=== PATIENT | male | born 1980 | race Caucasian/White ===

== ENCOUNTER 2024-05-25 16:07 | Emergency (ER) | payer BC, MEDICAID, SELFPAY ==
[2024-05-25 16:12] VITALS: BP 114/82; PULSE 111; RESP 18; TEMP 36.6; O2SAT 100; BMI 19.9
--- NOTE | 2024-05-25 16:17 | ED_ITS ---
HPI - Abdominal Pain 2 General: Chief Complaint: Abdominal Pain Stated Complaint: abd pain Time Seen by Provider: 05/25/24 16:11 History of Present Illness: 43-year-old male patient comes in today with complaints of abdominal discomfort. Patient has not had a paracentesis done in 2 to 3 weeks and believes his fluid is building up. Patient was brought in by EMS. Patient was given fentanyl and route which some relief of pain. Related Data Allergies Allergy/AdvReac Type Severity Reaction Status Date / Time No Known Allergies Allergy Verified 05/25/24 16:16 Review of Systems 2 General: Reports: 10 or more systems reviewed and unremarkable except in HPI and below Physical Exam 2 Const: COMMON NORMALS: alert HENMT: COMMON NORMALS: normocephalic HEAD & SCALP: normocephalic Neck/C-Spine: COMMON NORMALS: full ROM Chest: COMMONS NORMALS: normal inspection of the chest Resp: COMMON NORMALS: normal respiratory effort Cardio: COMMON NORMALS: regular rate RATE: regular rate GI: COMMON NORMALS: Soft to palpation AUSCULTATION: Yes normoactive bowel sounds PALPATION: Yes Soft to palpation, Yes Tenderness to palpation present (GI) and Yes Hepatomegaly present OTHER: Mild distention Back/Pelvis: COMMON NORMALS: thoracic and lumbar spine normal to inspection Extremity: COMMON NORMALS: full ROM Neuro: SENSORIUM/ORIENTATION: Yes alert Skin: COMMON NORMALS: turgor normal (Jaundice) GENERAL SKIN EXAM: turgor normal (Jaundice) Course 2 Vital Signs: Vital signs: Vital Signs Temperature 97.9 F 05/25/24 16:12 Pulse Rate 93 05/25/24 16:50 Respiratory Rate 16 05/25/24 16:50 Blood Pressure 109/75 05/25/24 16:50 Pulse Oximetry 99 05/25/24 16:50 Oxygen Delivery Me thod Room Air 05/25/24 16:50 MDM - Abdominal Pain Medical Decision Making 43-year-old male patient comes in today for abdominal pain. Patient believes he is needing paracentesis. Patient is seen by a registered veterinary technician at [facility] but has not been able to get back to see them in order to have a repeat paracentesis. Abdomen slightly distended but still soft. Vital signs are normal. Differential diagnosis includes ascites, malingering, end-stage liver disease. Laboratory values noted and normal ammonia. Bilirubin was 3.6, mild anemia with a hemoglobin 9.7, creatinine 0.6. Patient has no significant distention of abdomen warranting paracentesis emergently. Case management was requested to assist with appointment with specialist for follow-up and paracentesis. Reviewed this with patient who reported understanding and agreed with plan. Lab Data 05/25/24 16:45 05/25/24 16:45 Labs/Radiology: Laboratory Results WBC 5.00 10^3/uL (3.29-11.43) 05/25/24 16:45 RBC 3.94 10^6/uL (3.85-5.65) 05/25/24 16:45 Hgb 9.70 g/dL (11.27-16.99) L 05/25/24 16:45 Hct 32.8 % (37-53) L 05/25/24 16:45 MCV 83.2 fl (82-101) 05/25/24 16:45 MCH 24.6 pg (27-33) L 05/25/24 16:45 MCHC 29.6 g/dL (30-55) L 05/25/24 16:45 RDW 21.1 % (12.1-15.1) H 05/25/24 16:45 Plt Count 88 10^3/cmm (157-399) L 05/25/24 16:45 MPV 11.4 fL (7.4-10.4) H 05/25/24 16:45 Neut % (Auto) 64.6 % 05/25/24 16:45 Lymph % (Auto) 22.8 % 05/25/24 16:45 [place] % (Auto) 10.0 % 05/25/24 16:45 Eos % (Auto) 1.4 % 05/25/24 16:45 Baso % (Auto) 0.8 % 05/25/24 16:45 Neut # (Auto) 3.23 10^3/uL (1.8-7.7) 05/25/24 16:45 Lymph # (Auto) 1.1 10^3/uL (0.8-4.8) 05/25/24 16:45 [place] # (Auto) 0.5 10^3/uL (0.2-0.9) 05/25/24 16:45 Eos # (Auto) 0.1 10^3/uL (0.0-0.8) 05/25/24 16:45 Baso # (Auto) 0.0 10^3/uL (0.0-0.1) 05/25/24 16:45 Nucleated RBC % (auto) 0 % 05/25/24 16:45 Nucleated RBCs # 0.0 /100WBC 05/25/24 16:45 Sodium 141 mmol/L (136-145) 05/25/24 16:45 Potassium 3.1 mmol/L (3.5-5.1) L 05/25/24 16:45 Chloride 106 mmol/L (98-107) 05/25/24 16:45 Carbon Dioxide 21 mmol/L (22-29) L 05/25/24 16:45 Anion Gap 17.1 (5-19) 05/25/24 16:45 BUN 8 mg/dL (6-20) 05/25/24 16:45 Creatinine 0.6 mg/dL (0.7-1.2) L 05/25/24 16:45 GFR Calculation 145.7 mL/min (90-130) H 05/25/24 16:45 Glucose 99 mg/dL (65-115) 05/25/24 16:45 Calculated Osmolality 290 mOsm/kg (285-295) 05/25/24 16:45 Calcium 7.6 mg/dL (8.5-10.5) L 05/25/24 16:45 Total Bilirubin 3.6 mg/dL (0.15-1.2) H 05/25/24 16:45 AST 28 U/L (0-40) 05/25/24 16:45 ALT 11 U/L (0-41) 05/25/24 16:45 Alkaline Phosphatase 111 U/L (40-130) 05/25/24 16:45 Ammonia 27 umol/L (16-60) 05/25/24 16:45 Total Protein 6.1 g/dL (6.6-8.7) L 05/25/24 16:45 Albumin 3.3 g/dL (3.5-5.2) L 05/25/24 16:45 Globulin 2.8 g/dL (1.3-4.6) 05/25/24 16:45 No radiology studies performed this visit Discharge Plan Discharge Patient Disposition: Home Clinical Impression: Cirrhosis of liver with ascites Qualifiers: Hepatic cirrhosis type: unspecified hepatic cirrhosis Qualified Code(s): K74.60 - Unspecified cirrhosis of liver Condition: Stable Discharge Orders: Discharge ED (Routine); Ordered 05/25/24 Ordered By: Benito Zaman Discharge Diet: Usual diet Discharge Activity: Increase activity as tolerated Patient Instructions: Cirrhosis of the Liver (ED) Activity Restrictions/Additional Instructions: Continue with routine care. Case management will contact you regarding follow- up appointment with specialist for paracentesis of ascites. Coding Level of Care Code ED Shovel Handle Assembler for Siva Amezcua
[2024-05-25 16:44] VITALS: RESP 16; O2SAT 99
[2024-05-25] MEDS: HYDROmorphone 1 mg/mL INJ 1 mL 0.5 MG IVP (16:44)
[2024-05-25 16:50] VITALS: BP 109/75; PULSE 93; RESP 16; O2SAT 99
[2024-05-25 16:52] LABS: Basophils % 0.8 %; Eosinophils # 0.1 10^3/uL (0.0-0.8); Eosinophils % 1.4 %; Hematocrit 32.8 % (37-53); Lymphocytes # 1.1 10^3/uL (0.8-4.8); Lymphocytes % 22.8 %; Mean Corpuscular HGB Conc 29.6 g/dL (30-55); Mean Corpuscular Hemoglobin 24.6 pg (27-33); Mean Corpuscular Volume 83.2 fl (82-101); Mean Platelet Volume 11.4 fL (7.4-10.4); Monocytes # 0.5 10^3/uL (0.2-0.9); Neutrophils # 3.23 10^3/uL (1.8-7.7); Neutrophils % 64.6 %; Nucleated Red Blood Cells % 0 %; Platelet Count 88 10^3/cmm (157-399); Red Blood Count 3.94 10^6/uL (3.85-5.65); Red Cell Distribution Width 21.1 % (12.1-15.1)
[2024-05-25 17:06] LABS: Alanine Aminotransferase 11 U/L (0-41); Albumin Level 3.3 g/dL (3.5-5.2); Alkaline Phosphatase 111 U/L (40-130); Anion Gap 17.1 (5-19); Aspartate Amino Transferase 28 U/L (0-40); Blood Urea Nitrogen 8 mg/dL (6-20); Calcium 7.6 mg/dL (8.5-10.5); Carbon Dioxide 21 mmol/L (22-29); Chloride 106 mmol/L (98-107); Creatinine Clr Calc Pharmacy 147.1488; Globulin 2.8 g/dL (1.3-4.6); Glomerular Filtration Rate 145.7 mL/min (90-130); Glucose 99 mg/dL (65-115); Osmolality Calculated 290 mOsm/kg (285-295); Potassium 3.1 mmol/L (3.5-5.1); Sodium 141 mmol/L (136-145); Total Bilirubin 3.6 mg/dL (0.15-1.2); Total Protein 6.1 g/dL (6.6-8.7)
[2024-05-25 17:13] LABS: Ammonia 27 umol/L (16-60)
[2024-05-25 17:46] VITALS: BP 130/88
[2024-05-25 18:06] VITALS: BP 130/88; PULSE 99; O2SAT 99
== END 2024-05-25 18:07 | disposition home or self-care (01) ==
PROVIDERS: Emergency Provider Nurse Practitioner Family
DX: K74.60 Unspecified cirrhosis of liver (principal)
CPT/HCPCS: 36415; 80053; 82140; 85025; 96374; 99284; J1170

== ENCOUNTER 2024-05-26 16:59 | Emergency (ER) | payer BC, MEDICAID, SELFPAY ==
[2024-05-26 17:04] VITALS: BP 120/74; PULSE 97; RESP 20; TEMP 36.7; O2SAT 95; BMI 19.9
--- NOTE | 2024-05-26 17:43 | ED_ITS ---
Documented by User: Neptali Beltran DO 05/27/24 06:08 HPI - Abdominal Pain 2 General: Chief Complaint: Abdominal Pain Stated Complaint: abd pain, liver failure Time Seen by Provider: 05/26/24 17:03 History of Present Illness: 43-year-old male presents to the emergen cy room with complaint of abdominal pain. Patient has a history of end-stage liver disease with cirrhosis has severe ascites he gets paracentesis about once a week. Comes in today complaining of significant distention of the abdomen. Complaining of generalized abdominal pain and bloating. No fever. No sweats or chills. Associated Symptoms: Reports bloating and nausea; Denies chills, coffee ground emesis, dysuria, fever(s) and hematemesis Related Data Allergies Allergy/AdvReac Type Severity Reaction Status Date / Time No Known Allergies Allergy Verified 05/25/24 16:16 Review of Systems 2 Const: Denies: fever(s) or chills Card: Denies: chest pain Resp: Denies: dyspnea GI: Reports: abdominal pain, nausea and bloating; Denies: hematemesis or coffee ground emesis : Denies: dysuria, urinary frequency or urinary urgency Musc: Denies: neck pain or back pain Skin/Breast: Denies: rash Physical Exam 2 Const: GENERAL APPEARANCE: cooperative NUTRITIONAL APPEARANCE: cachectic ORIENTATION/CONSCIOUSNESS: Yes awake, Yes oriented to person, Yes oriented to place and Yes oriented to time HENMT: COMMON NORMALS: normocephalic, atraumatic and hearing grossly normal bilaterally HEAD & SCALP: normocephalic and atraumatic Resp: COMMON NORMALS: normal respiratory effort, No retractions, No use of accessory muscles and clear to auscultation bilaterally AUSCULTATION: clear to auscultation bilaterally Cardio: COMMON NORMALS: regular rate, regular rhythm and No murmurs present (Cardio) RATE: regular rate RHYTHM: regular rhythm GI: COMMON NORMALS: No hepatosplenomegaly present INSPECTION: Yes abdominal distension and Yes Fluid wave present PALPATION: Yes Tenderness to palpation present (GI) (Generally), No Guarding due to palpation present (GI) and Yes No hepatosplenomegaly present PERCUSSION: dullness to percussion and Fluid wave present Extremity: COMMON NORMALS: normal to inspection, capillary refill normal, no clubbing, cyanosis or edema, no calf tenderness and no pedal edema Neuro: SENSORIUM/ORIENTATION: Yes oriented to person, Yes oriented to place and Yes oriented to time Skin: COMMON NORMALS: no rashes or lesions noted GENERAL SKIN EXAM: no rashes or lesions noted Course 2 Vital Signs: Vital signs: Vital Signs Temperature 98.0 F 05/26/24 17:04 Pulse Rate 93 05/26/24 20:11 Respiratory Rate 19 H 05/26/24 20:11 Blood Pressure 115/86 05/26/24 20:11 Pulse Oximetry 98 05/26/24 20:11 Oxygen Delivery Me thod Room Air 05/26/24 19:56 MDM - Abdominal Pain Medical Decision Making Care signed out to Dr. Raphael at change of shift. See final notes for diagnosis and disposition. Lab work was reviewed and discussed with the patient. Patient will be discharged and case management will be consulted to call the patient to bring him back hopefully tomorrow for paracentesis by radiology. Lab Data 05/26/24 17:17 05/26/24 17:17 Labs/Radiology: Laboratory Results WBC 5.43 10^3/uL (3.29-11.43) 05/26/24 17:17 RBC 4.06 10^6/uL (3.85-5.65) 05/26/24 17:17 Hgb 10.40 g/dL (11.27-16.99) L 05/26/24 17:17 Hct 33.7 % (37-53) L 05/26/24 17:17 MCV 83.0 fl (82-101) 05/26/24 17:17 MCH 25.6 pg (27-33) L 05/26/24 17:17 MCHC 30.9 g/dL (30-55) 05/26/24 17:17 RDW 22.0 % (12.1-15.1) H 05/26/24 17:17 Plt Count 84 10^3/cmm (157-399) L 05/26/24 17:17 MPV Not Reportable 05/26/24 17:17 Neut % (Auto) 64.5 % 05/26/24 17:17 Lymph % (Auto) 23.9 % 05/26/24 17:17 [place] % (Auto) 8.3 % 05/26/24 17:17 Eos % (Auto) 2.0 % 05/26/24 17:17 Baso % (Auto) 1.1 % 05/26/24 17:17 Neut # (Auto) 3.50 10^3/uL (1.8-7.7) 05/26/24 17:17 Lymph # (Auto) 1.3 10^3/uL (0.8-4.8) 05/26/24 17:17 [place] # (Auto) 0.5 10^3/uL (0.2-0.9) 05/26/24 17:17 Eos # (Auto) 0.1 10^3/uL (0.0-0.8) 05/26/24 17:17 Baso # (Auto) 0.1 10^3/uL (0.0-0.1) 05/26/24 17:17 Nucleated RBC % (auto) 0 % 05/26/24 17:17 Nucleated RBCs # 0.0 /100WBC 05/26/24 17:17 PT 19.60 SECONDS (12.1-14.9) H 05/26/24 17:17 INR 1.60 (0.8-1.2) H 05/26/24 17:17 APTT 38.5 SECONDS (23.9-36.7) H 05/26/24 17:17 Sodium 137 mmol/L (136-145) 05/26/24 17:17 Potassium 3.4 mmol/L (3.5-5.1) L 05/26/24 17:17 Chloride 103 mmol/L (98-107) 05/26/24 17:17 Carbon Dioxide 20 mmol/L (22-29) L 05/26/24 17:17 Anion Gap 17.4 (5-19) 05/26/24 17:17 BUN 10 mg/dL (6-20) 05/26/24 17:17 Creatinine 0.5 mg/dL (0.7-1.2) L 05/26/24 17:17 GFR Calculation 179.8 mL/min (90-130) H 05/26/24 17:17 Glucose 95 mg/dL (65-115) 05/26/24 17:17 Calculated Osmolality 283 mOsm/kg (285-295) L 05/26/24 17:17 Lactic Acid 2.7 mmol/L (0.5-2.2) H 05/26/24 17:17 Calcium 8.3 mg/dL (8.5-10.5) L 05/26/24 17:17 Total Bilirubin 4.9 mg/dL (0.15-1.2) H 05/26/24 17:17 AST 40 U/L (0-40) 05/26/24 17:17 ALT 13 U/L (0-41) 05/26/24 17:17 Alkaline Phosphatase 121 U/L (40-130) 05/26/24 17:17 Ammonia 61 umol/L (16-60) H 05/26/24 17:17 Total Protein 7.1 g/dL (6.6-8.7) 05/26/24 17:17 Albumin 3.6 g/dL (3.5-5.2) 05/26/24 17:17 Globulin 3.5 g/dL (1.3-4.6) 05/26/24 17:17 Lipase 47 U/L (13-60) 05/26/24 17:17 Urine Color [place] (Yellow) A 05/26/24 19:29 Urine Appearance Clear (CLEAR) 05/26/24 19:29 Urine pH 6.0 (5-7) 05/26/24 19:29 Ur Specific [place] 1.031 (1.005-1.030) H 05/26/24 19:29 Urine Protein Trace (Negative) A 05/26/24 19: Urine Glucose (UA) Negative (Normal) 05/26/24 19: Urine Ketones Trace (Negative) 05/26/24 19: Urine Blood Negative (Negative) 05/26/24 19: Urine Nitrate Positive (Negative) A 05/26/24 19:29 Urine Bilirubin 2+ (Negative) H 05/26/24 19:29 Urine Urobilinogen 4.0 mg/dL (Negative) H 05/26/24 19:29 Ur Leukocyte Esterase 1+ (Negative) A 05/26/24 19: Urine RBC 6-10 /hpf (0-2) 05/26/24 19:29 Urine WBC 0-5 /hpf (0-5) 05/26/24 19:29 Ur Squamous Epith Cells 0-5 /hpf (0-5) 05/26/24 19:29 Amorphous Sediment Not Reportable 05/26/24 19:29 Urine Bacteria None seen /hpf (NONE) 05/26/24 19:29 Hyaline Casts 3.71 /lpf 05/26/24 19:29 Discharge Plan Discharge Patient Disposition: Home Clinical Impression: Cirrhosis of liver with ascites Qualifiers: Hepatic cirrhosis type: unspecified hepatic cirrhosis Qualified Code(s): K74.60 - Unspecified cirrhosis of liver Condition: Stable Discharge Orders: Discharge ED (Routine); Ordered 05/26/24 Ordered By: Mike Raphael Patient Instructions: Ascites (ED), Paracentesis (DC) Activity Restrictions/Additional Instructions: A order for therapeutic paracentesis or drawing off fluid of your abdomen placed for case management. They will probably be calling you early tomorrow morning to arrange in a time that you can come in for radiology to do this procedure. If you have any questions feel free to call the hospital. Coding Level of Care Code ED Chip Frier for Chg Fwd Documented by User: Mike Raphael DO 05/26/24 20:53 HPI - Abdominal Pain 2 General: Chief Complaint: Abdominal Pain Stated Complaint: abd pain, liver failure Time Seen by Provider: 05/26/24 17:03 Related Data Allergies Allergy/AdvReac Type Severity Reaction Status Date / Time No Known Allergies Allergy Verified 05/25/24 16:16 Physical Exam 2 Const: COMMON NORMALS: no acute distress, average body habitus, patient oriented x3, no limitations, healthy appearing, alert and well nourished HENMT: COMMON NORMALS: normocephalic, atraumatic, hearing grossly normal bilaterally, external ears normal, Normal external nose present and moist oral mucous membranes HEAD & SCALP: normocephalic and atraumatic NOSE: Normal external nose present EXTERNAL EAR: Yes external ears normal Neck/C-Spine: COMMON NORMALS: no JVD Chest: COMMONS NORMALS: normal inspection of the chest Resp: COMMON NORMALS: normal respiratory effort, No retractions, No use of accessory muscles and clear to auscultation bilaterally AUSCULTATION: clear to auscultation bilaterally Cardio: COMMON NORMALS: no JVD, regular rate, regular rhythm, S1 normal heart sound present, S2 normal heart sound present, No gallops present (Cardio), No clicks present (Cardio), No murmurs present (Cardio) and No rub (Cardio) R ATE: regular rate RHYTHM: regular rhythm HEART SOUNDS: S1 normal heart sound present and S2 normal heart sound present GI: COMMON NORMALS: no masses OTHER: Moderately distended, soft to palpate, diffuse ascites, diffusely tender. Neuro: COMMON NORMALS: patient oriented x3 SENSORIUM/ORIENTATION: Yes alert Course 2 Vital Signs: Vital signs: Vital Signs Temperature 98.0 F 05/26/24 17:04 Pulse Rate 93 05/26/24 20:11 Respiratory Rate 19 H 05/26/24 20:11 Blood Pressure 115/86 05/26/24 20:11 Pulse Oximetry 98 05/26/24 20:11 Oxygen Delivery Me thod Room Air 05/26/24 19:56 MDM - Abdominal Pain Medical Decision Making Lab work was reviewed and discussed with the patient. Patient will be discharged and case management will be consulted to call the patient to bring him back hopefully tomorrow for paracentesis by radiology. Medical Records I reviewed the patient's medical records. Lab Data I reviewed the patient's lab results. 05/26/24 17:17 05/26/24 17:17 Labs/Radiology: Laboratory Results WBC 5.43 10^3/uL (3.29-11.43) 05/26/24 17:17 RBC 4.06 10^6/uL (3.85-5.65) 05/26/24 17:17 Hgb 10.40 g/dL (11.27-16.99) L 05/26/24 17:17 Hct 33.7 % (37-53) L 05/26/24 17:17 MCV 83.0 fl (82-101) 05/26/24 17:17 MCH 25.6 pg (27-33) L 05/26/24 17:17 MCHC 30.9 g/dL (30-55) 05/26/24 17:17 RDW 22.0 % (12.1-15.1) H 05/26/24 17:17 Plt Count 84 10^3/cmm (157-399) L 05/26/24 17:17 MPV Not Reportable 05/26/24 17:17 Neut % (Auto) 64.5 % 05/26/24 17:17 Lymph % (Auto) 23.9 % 05/26/24 17:17 [place] % (Auto) 8.3 % 05/26/24 17:17 Eos % (Auto) 2.0 % 05/26/24 17:17 Baso % (Auto) 1.1 % 05/26/24 17:17 Neut # (Auto) 3.50 10^3/uL (1.8-7.7) 05/26/24 17:17 Lymph # (Auto) 1.3 10^3/uL (0.8-4.8) 05/26/24 17:17 [place] # (Auto) 0.5 10^3/uL (0.2-0.9) 05/26/24 17:17 Eos # (Auto) 0.1 10^3/uL (0.0-0.8) 05/26/24 17:17 Baso # (Auto) 0.1 10^3/uL (0.0-0.1) 05/26/24 17:17 Nucleated RBC % (auto) 0 % 05/26/24 17:17 Nucleated RBCs # 0.0 /100WBC 05/26/24 17:17 PT 19.60 SECONDS (12.1-14.9) H 05/26/24 17:17 INR 1.60 (0.8-1.2) H 05/26/24 17:17 APTT 38.5 SECONDS (23.9-36.7) H 05/26/24 17:17 Sodium 137 mmol/L (136-145) 05/26/24 17:17 Potassium 3.4 mmol/L (3.5-5.1) L 05/26/24 17:17 Chloride 103 mmol/L (98-107) 05/26/24 17:17 Carbon Dioxide 20 mmol/L (22-29) L 05/26/24 17:17 Anion Gap 17.4 (5-19) 05/26/24 17:17 BUN 10 mg/dL (6-20) 05/26/24 17:17 Creatinine 0.5 mg/dL (0.7-1.2) L 05/26/24 17:17 GFR Calculation 179.8 mL/min (90-130) H 05/26/24 17:17 Glucose 95 mg/dL (65-115) 05/26/24 17:17 Calculated Osmolality 283 mOsm/kg (285-295) L 05/26/24 17:17 Lactic Acid 2.7 mmol/L (0.5-2.2) H 05/26/24 17:17 Calcium 8.3 mg/dL (8.5-10.5) L 05/26/24 17:17 Total Bilirubin 4.9 mg/dL (0.15-1.2) H 05/26/24 17:17 AST 40 U/L (0-40) 05/26/24 17:17 ALT 13 U/L (0-41) 05/26/24 17:17 Alkaline Phosphatase 121 U/L (40-130) 05/26/24 17:17 Ammonia 61 umol/L (16-60) H 05/26/24 17:17 Total Protein 7.1 g/dL (6.6-8.7) 05/26/24 17:17 Albumin 3.6 g/dL (3.5-5.2) 05/26/24 17:17 Globulin 3.5 g/dL (1.3-4.6) 05/26/24 17:17 Lipase 47 U/L (13-60) 05/26/24 17:17 Urine Color [place] (Yellow) A 05/26/24 19: Urine Appearance Clear (CLEAR) 05/26/24 19:29 Urine pH 6.0 (5-7) 05/26/24 19:29 Ur Specific [place] 1.031 (1.005-1.030) H 05/26/24 19:29 Urine Protein Trace (Negative) A 05/26/24 19:29 Urine Glucose (UA) Negative (Normal) 05/26/24 19: Urine Ketones Trace (Negative) 05/26/24 19: Urine Blood Negative (Negative) 05/26/24 19: Urine Nitrate Positive (Negative) A 05/26/24 19:29 Urine Bilirubin 2+ (Negative) H 05/26/24 19:29 Urine Urobilinogen 4.0 mg/dL (Negative) H 05/26/24 19:29 Ur Leukocyte Esterase 1+ (Negative) A 05/26/24 19:29 Urine RBC 6-10 /hpf (0-2) 05/26/24 19:29 Urine WBC 0-5 /hpf (0-5) 05/26/24 19:29 Ur Squamous Epith Cells 0-5 /hpf (0-5) 05/26/24 19:29 Amorphous Sediment Not Reportable 05/26/24 19:29 Urine Bacteria None seen /hpf (NONE) 05/26/24 19:29 Hyaline Casts 3.71 /lpf 05/26/24 19:29 All radiology interpretation(s) finalized by discharge Discharge Plan Discharge Patient Disposition: Home Clinical Impression: Cirrhosis of liver with ascites Qualifiers: Hepatic cirrhosis type: unspecified hepatic cirrhosis Qualified Code(s): K74.60 - Unspecified cirrhosis of liver Condition: Stable Discharge Orders: Discharge ED (Routine); Ordered 05/26/24 Ordered By: Mike Raphael Patient Instructions: Ascites (ED), Paracentesis (DC) Activity Restrictions/Additional Instructions: A order for therapeutic paracentesis or drawing off fluid of your abdomen placed for case management. They will probably be calling you early tomorrow morning to arrange in a time that you can come in for radiology to do this procedure. If you have any questions feel free to call the hospital. Coding Level of Care Code ED Chip Frier for Siva Amezcua
[2024-05-26 17:45] LABS: Basophils # 0.1 10^3/uL (0.0-0.1); Basophils % 1.1 %; Eosinophils # 0.1 10^3/uL (0.0-0.8); Hematocrit 33.7 % (37-53); Lymphocytes # 1.3 10^3/uL (0.8-4.8); Lymphocytes % 23.9 %; Mean Corpuscular HGB Conc 30.9 g/dL (30-55); Mean Corpuscular Hemoglobin 25.6 pg (27-33); Monocytes # 0.5 10^3/uL (0.2-0.9); Monocytes % 8.3 %; Neutrophils % 64.5 %; Nucleated Red Blood Cells % 0 %; Platelet Count 84 10^3/cmm (157-399); Red Blood Count 4.06 10^6/uL (3.85-5.65); White Blood Count 5.43 10^3/uL (3.29-11.43)
[2024-05-26 17:56] LABS: Partial Thromboplastin Time 38.5 SECONDS (23.9-36.7)
[2024-05-26 17:58] LABS: Slide Review Slide Review Perform
[2024-05-26 18:01] LABS: Alanine Aminotransferase 13 U/L (0-41); Albumin Level 3.6 g/dL (3.5-5.2); Alkaline Phosphatase 121 U/L (40-130); Blood Urea Nitrogen 10 mg/dL (6-20); Calcium 8.3 mg/dL (8.5-10.5); Carbon Dioxide 20 mmol/L (22-29); Chloride 103 mmol/L (98-107); Creatinine Clr Calc Pharmacy 176.5786; Globulin 3.5 g/dL (1.3-4.6); Glomerular Filtration Rate 179.8 mL/min (90-130); Glucose 95 mg/dL (65-115); Lipase 47 U/L (13-60); Osmolality Calculated 283 mOsm/kg (285-295); Sodium 137 mmol/L (136-145); Total Bilirubin 4.9 mg/dL (0.15-1.2); Total Protein 7.1 g/dL (6.6-8.7)
[2024-05-26 18:02] LABS: Lactic Sepsis W/Reflex 2.7 mmol/L (0.5-2.2)
[2024-05-26 18:04] LABS: Anion Gap 17.4 (5-19); Aspartate Amino Transferase 40 U/L (0-40); Potassium 3.4 mmol/L (3.5-5.1)
[2024-05-26 18:12] LABS: Ammonia 61 umol/L (16-60)
[2024-05-26 18:41] VITALS: BP 111/72; PULSE 101; RESP 20; O2SAT 98
[2024-05-26 19:06] VITALS: BP 109/80; PULSE 94; RESP 16; O2SAT 97
[2024-05-26 19:26] LABS: Reflex Lactate Order REFLEX LACTIC ORDERD
[2024-05-26 19:44] LABS: Bilirubin Urine 2+ (Negative); Blood Urine Negative (Negative); Glucose Urine UA Negative (Normal); Ketones Urine Trace (Negative); Leukocyte Esterase Urine 1+ (Negative); Nitrate Urine Positive (Negative); Protein Urine Trace (Negative); Urine Appearance Clear (CLEAR)
[2024-05-26 19:49] LABS: Add Urine Microscopic? YES; Bacteria Urine None Seen /hpf; Hyaline Casts Urine 3.71 /lpf; Squamous Epithelial Cell Urine 0-5 /hpf (0-5); WBC Urine 0-5 /hpf (0-5)
[2024-05-26] MEDS: HYDROmorphone 1 mg/mL INJ 1 mL 0.5 MG IVP (19:52)
[2024-05-26 19:56] VITALS: BP 106/74; PULSE 92; RESP 19; O2SAT 100
[2024-05-26 20:00] LABS: Specific Gravity, Urine 1.031 (1.005-1.030); Urine Color Orange (Yellow)
[2024-05-26 20:01] LABS: Add Urine Culture? Yes
[2024-05-26 20:11] VITALS: BP 115/86; PULSE 93; RESP 19; O2SAT 98
== END 2024-05-26 20:12 | disposition home or self-care (01) ==
PROVIDERS: Emergency Provider Family Medicine
DX: K74.60 Unspecified cirrhosis of liver (principal); R18.8 Other ascites; K72.10 Chronic hepatic failure without coma
CPT/HCPCS: 36415; 80053; 81001; 82140; 83605; 83690; 85025; 85610; 85730; 87040; 87086; 96374; 99284; J1170

== ENCOUNTER 2024-05-27 11:33 | Day surgery (SDC) | payer BC, SELFPAY ==
[2024-05-27 11:51] VITALS: BP 121/89; PULSE 119; RESP 18; TEMP 36.4; O2SAT 100; BMI 19.9
--- NOTE | 2024-05-27 11:53 | US_ITS ---
WS: [id number] ULTRASOUND-GUIDED PARACENTESIS CLINICAL INFORMATION: ascites COMPARISON: None. Procedure Informed consent: The risks, benefits, and alternatives of the procedure were discussed with the ben ent. Verbal and written consent was obtained. Timeout: A timeout was performed to confirm the correct patient, procedure, and site. Preparation: A suitable skin site was identified. The patient was prepped and draped in usual sterile fashion. Lidocaine 1% was used for local anesthesia. Catheter: 4 [place] One-step Yueh catheter. Side: LEFT lower quadrant. Fluid Volume: 10,000 ml Color: Clear yellow DISPOSITION: Discarded safely. Complications: None. Patient disposition: Discharged from the department in stable condition. US/US paracentesis abd w [id number] IMPRESSION: Uncomplicated ultrasound-guided paracentesis. Removal of 10,000 cc
== END 2024-05-27 13:15 | disposition home or self-care (01) ==
PROVIDERS: Radiology Neuroradiology; Visit Provider Family Medicine
PROC: (CPT 49082; principal; 2024-05-27 12:00)
DX: R18.8 Other ascites (principal)
CPT/HCPCS: 49083

== ENCOUNTER 2024-05-28 23:28 | Emergency (ER) | payer BC, SELFPAY ==
[2024-05-28 23:29] VITALS: BP 126/81; PULSE 113; RESP 16; TEMP 36.9; O2SAT 97; BMI 19.9
[2024-05-28 23:34] VITALS: BP 126/81; PULSE 112; O2SAT 100
--- NOTE | 2024-05-28 23:35 | ED_ITS ---
HPI - Abdominal Pain 2 General: Chief Complaint: Abdominal Pain Stated Complaint: abd pain Time Seen by Provider: 05/28/24 23:34 History of Present Illness: Patient presents to the ER with sharp stabbing abdominal pain. He says his abdomen is less distended since he got his paracentesis yesterday they drained 9-1/2 L fluid out but now feels like his internal organs are hitting each other and causing pain. Paracentesis was performed without any complications per patient. Patient denies any nausea vomiting diarrhea constipation fevers chills. Related Data Home Medications Medication Instructions Recorded Confirmed buprenorphine HCl 300 mcg buccal 300 mcg buccal DAILY 05/27/24 05/27/24 film (Belbuca) hydrocodone 5 mg-acetaminophen 325 1 tab PO .Q4-6 HR PRN Pain 05/27/24 05/27/24 mg tablet ondansetron 4 mg disintegrating 4 mg PO Q4H PRN Nausea 05/27/24 05/27/24 tablet orphenadrine citrate 100 mg 100 mg PO BID 05/27/24 05/27/24 tablet,extended release prochlorperazine maleate 10 mg 10 mg PO Q6H PRN Nausea 05/27/24 05/27/24 tablet Previous Rx's Medication Instructions Recorded ondansetron HCl 4 mg tablet 4 mg PO Q8H PRN nausea and 05/29/24 vomiting #14 tabs Allergies Allergy/AdvReac Type Severity Reaction Status Date / Time No Known Allergies Allergy Verified 05/28/24 23:34 Review of Systems 2 General: Reports: 10 or more systems reviewed and unremarkable except in HPI and below Physical Exam 2 Const: COMMON NORMALS: no acute distress, average body habitus, patient oriented x3, no limitations, healthy appearing, alert and well nourished HENMT: COMMON NORMALS: normocephalic, hearing grossly normal bilaterally, external ears normal, Normal external nose present and moist oral mucous membranes HEAD & SCALP: normocephalic NOSE: Normal external nose present EXTERNAL EAR: Yes external ears normal Neck/C-Spine: COMMON NORMALS: no JVD Chest: COMMONS NORMALS: normal inspection of the chest and normal palpation of entire chest wall Resp: COMMON NORMALS: normal respiratory effort, No retractions, No use of accessory muscles and clear to auscultation bilaterally AUSCULTATION: clear to auscultation bilaterally Cardio: COMMON NORMALS: no JVD, regular rate, regular rhythm, S1 normal heart sound present, S2 normal heart sound present, No gallops present (Cardio), No clicks present (Cardio), No murmurs present (Cardio) and No rub (Cardio) R ATE: regular rate RHYTHM: regular rhythm HEART SOUNDS: S1 normal heart sound present and S2 normal heart sound present GI: COMMON NORMALS: Normal to inspection, nondistended, normoactive bowel sounds present, Soft to palpation, No hepatosplenomegaly present and no masses; negative for non-tender (Diffusely pj to palpation) PALPATION: Yes Soft to palpation and Yes No hepatosplenomegaly present Neuro: COMMON NORMALS: patient oriented x3 SENSORIUM/ORIENTATION: Yes alert Course 2 Vital Signs: Vital signs: Vital Signs Temperature 98.4 F 05/28/24 23:29 Pulse Rate 104 H 05/29/24 00:30 Respiratory Rate 13 05/29/24 00:04 Blood Pressure 117/78 05/29/24 00:30 Pulse Oximetry 98 05/29/24 00:04 Oxygen Delivery Me thod Room Air 05/29/24 00:04 MDM - Abdominal Pain Medical Decision Making Lab work was obtained which is unremarkable for the patient to be is more anemic with a hemoglobin of 8.4, x-ray preliminary read by myself was negative for acute changes, patient was given 0.5 mg of Dilaudid Reglan 10 mg. Upon recheck patient was sleeping soundly. Patient be discharged. Medical Records I reviewed the patient's medical records. Lab Data I reviewed the patient's lab results. 05/28/24 23:54 05/28/24 23:54 Labs/Radiology: Laboratory Results WBC 4.41 10^3/uL (3.29-11.43) 05/28/24 23:54 RBC 3.35 10^6/uL (3.85-5.65) L 05/28/24 23:54 Hgb 8.40 g/dL (11.27-16.99) L 05/28/24 23:54 Hct 28.6 % (37-53) L 05/28/24 23:54 MCV 85.4 fl (82-101) 05/28/24 23:54 MCH 25.1 pg (27-33) L 05/28/24 23:54 MCHC 29.4 g/dL (30-55) L 05/28/24 23:54 RDW 21.9 % (12.1-15.1) H 05/28/24 23:54 Plt Count 78 10^3/cmm (157-399) L 05/28/24 23:54 MPV 11.9 fL (7.4-10.4) H 05/28/24 23:54 Neut % (Auto) 67.4 % 05/28/24 23:54 Lymph % (Auto) 22.2 % 05/28/24 23:54 [place] % (Auto) 7.5 % 05/28/24 23:54 Eos % (Auto) 2.0 % 05/28/24 23:54 Baso % (Auto) 0.7 % 05/28/24 23:54 Neut # (Auto) 2.97 10^3/uL (1.8-7.7) 05/28/24 23:54 Lymph # (Auto) 1.0 10^3/uL (0.8-4.8) 05/28/24 23:54 [place] # (Auto) 0.3 10^3/uL (0.2-0.9) 05/28/24 23:54 Eos # (Auto) 0.1 10^3/uL (0.0-0.8) 05/28/24 23:54 Baso # (Auto) 0.0 10^3/uL (0.0-0.1) 05/28/24 23:54 Nucleated RBC % (auto) 0 % 05/28/24 23:54 Nucleated RBCs # 0.0 /100WBC 05/28/24 23:54 Sodium 137 mmol/L (136-145) 05/28/24 23:54 Potassium 3.3 mmol/L (3.5-5.1) L 05/28/24 23:54 Chloride 104 mmol/L (98-107) 05/28/24 23:54 Carbon Dioxide 22 mmol/L (22-29) 05/28/24 23:54 Anion Gap 14.3 (5-19) 05/28/24 23:54 BUN 14 mg/dL (6-20) 05/28/24 23:54 Creatinine 0.8 mg/dL (0.7-1.2) 05/28/24 23:54 GFR Calculation 104.5 mL/min (90-130) 05/28/24 23:54 Glucose 135 mg/dL (65-115) H 05/28/24 23:54 Calculated Osmolality 287 mOsm/kg (285-295) 05/28/24 23:54 Calcium 7.9 mg/dL (8.5-10.5) L 05/28/24 23:54 Total Bilirubin 3.6 mg/dL (0.15-1.2) H 05/28/24 23:54 AST 29 U/L (0-40) 05/28/24 23:54 ALT 11 U/L (0-41) 05/28/24 23:54 Alkaline Phosphatase 111 U/L (40-130) 05/28/24 23:54 Ammonia 34 umol/L (16-60) 05/28/24 23:54 Total Protein 6.4 g/dL (6.6-8.7) L 05/28/24 23:54 Albumin 3.5 g/dL (3.5-5.2) 05/28/24 23:54 Globulin 2.9 g/dL (1.3-4.6) 05/28/24 23:54 Lipase 57 U/L (13-60) 05/28/24 23:54 XR interpretation done by ED provider, pending radiology final review Discharge Plan Discharge Patient Disposition: Home Clinical Impression: Cirrhosis of liver with ascites Qualifiers: Hepatic cirrhosis type: unspecified hepatic cirrhosis Qualified Code(s): K74.60 - Unspecified cirrhosis of liver Abdominal pain Qualifiers: Abdominal location: generalized Qualified Code(s): R10.84 - Generalized abdominal pain Anemia Qualifiers: Anemia type: unspecified type Qualified Code(s): D64.9 - Anemia, unspecified Condition: Stable Prescriptions: New ondansetron HCl 4 mg tablet 4 mg PO Q8H PRN (Reason: nausea and vomiting) Qty: 14 0RF No Action hydrocodone-acetaminophen 5-325 mg tablet 1 tab PO .Q4-6 HR PRN (Reason: Pain) prochlorperazine maleate 10 mg tablet 10 mg PO Q6H PRN (Reason: Nausea) orphenadrine citrate 100 mg tablet extended release 100 mg PO BID ondansetron 4 mg tablet,disintegrating 4 mg PO Q4H PRN (Reason: Nausea) buprenorphine HCl [Belbuca] 300 mcg film 300 mcg BUCCAL DAILY Discharge Orders: Discharge ED (Routine); Ordered 05/29/24 Ordered By: Mike Raphael Patient Instructions: Abdominal Pain (ED), Anemia, Ascites (ED) Activity Restrictions/Additional Instructions: Evaluation ER showed you are slightly more anemic than you have been. Otherwise your labs and x-ray is unremarkable. Please follow-up with your family practitioner within the next 7 to 10 days for to have a recheck on your hemoglobin. Coding Level of Care Code ED [employer] for Siva Amezcua
[2024-05-28 23:50] VITALS: RESP 15
[2024-05-28] MEDS: metoclopramide 5 mg/mL SDV 2 mL 10 MG IVP (23:50)
[2024-05-28] MEDS: HYDROmorphone 1 mg/mL INJ 1 mL 0.5 MG IVP (23:50)
[2024-05-29] LABS: Basophils % 0.7 %; Eosinophils # 0.1 10^3/uL (0.0-0.8); Hematocrit 28.6 % (37-53); Lymphocytes % 22.2 %; Mean Corpuscular HGB Conc 29.4 g/dL (30-55); Mean Corpuscular Hemoglobin 25.1 pg (27-33); Mean Corpuscular Volume 85.4 fl (82-101); Mean Platelet Volume 11.9 fL (7.4-10.4); Monocytes # 0.3 10^3/uL (0.2-0.9); Monocytes % 7.5 %; Neutrophils # 2.97 10^3/uL (1.8-7.7); Neutrophils % 67.4 %; Nucleated Red Blood Cells % 0 %; Platelet Count 78 10^3/cmm (157-399); Red Blood Count 3.35 10^6/uL (3.85-5.65); Red Cell Distribution Width 21.9 % (12.1-15.1); White Blood Count 4.41 10^3/uL (3.29-11.43)
--- NOTE | 2024-05-29 | XRR_ITS ---
PROCEDURE INFORMATION: Exam: XR Abdomen Exam date and time: 05/29/2024 12:04 AM Age: 43 years old Clinical indication: Condition or disease; Other: Ci; Additional info: Abd pain, cirrhosis ascites, PT had para yesterday TECHNIQUE: Imaging protocol: Radiologic exam of the abdomen. Views: Frontal supine view of the abdomen. 1 View. COMPARISON: US paracentesis abd w [id number] 05/27/2024 11:57 AM FINDINGS: Gastrointestinal tract: Gaseous distension of the stomach and colon. Intraperitoneal space: Abdominal ascites. No free air within the abdomen. Bones/joints: Unremarkable. XR/XR KUB [id number] IMPRESSION: No acute abdominopelvic abnormality.
[2024-05-29 00:04] VITALS: BP 126/68; PULSE 103; RESP 13; O2SAT 98
[2024-05-29 00:24] LABS: Alanine Aminotransferase 11 U/L (0-41); Albumin Level 3.5 g/dL (3.5-5.2); Alkaline Phosphatase 111 U/L (40-130); Ammonia 34 umol/L (16-60); Anion Gap 14.3 (5-19); Aspartate Amino Transferase 29 U/L (0-40); Blood Urea Nitrogen 14 mg/dL (6-20); Calcium 7.9 mg/dL (8.5-10.5); Carbon Dioxide 22 mmol/L (22-29); Chloride 104 mmol/L (98-107); Creatinine Clr Calc Pharmacy 110.3616; Globulin 2.9 g/dL (1.3-4.6); Glomerular Filtration Rate 104.5 mL/min (90-130); Glucose 135 mg/dL (65-115); Lipase 57 U/L (13-60); Osmolality Calculated 287 mOsm/kg (285-295); Potassium 3.3 mmol/L (3.5-5.1); Sodium 137 mmol/L (136-145); Total Bilirubin 3.6 mg/dL (0.15-1.2); Total Protein 6.4 g/dL (6.6-8.7)
[2024-05-29 00:30] VITALS: BP 117/78; PULSE 104
[2024-05-29 02:02] VITALS: BP 106/70; PULSE 91; RESP 18; O2SAT 98
== END 2024-05-29 02:03 | disposition home or self-care (01) ==
PROVIDERS: Emergency Provider Emergency Medicine
DX: K74.60 Unspecified cirrhosis of liver (principal); R10.84 Generalized abdominal pain; D64.9 Anemia, unspecified; R18.8 Other ascites
CPT/HCPCS: 36415; 74018; 80053; 82140; 83690; 85025; 96374; 96375; 99284; J1170; J2765